=== PATIENT | female | born 1935 | race Hispanic/Latino ===

== ENCOUNTER 2017-06-09 07:36 | Inpatient (IN) | payer MEDICARE ==
[~2017-06-09] VITALS: Ht 160 cm; Wt 50.3 kg
[2017-06-09 08:06] LABS: BASOPHILS % (AUTO) 0.8 % (0.0-5.0); EOSINOPHILS % (AUTO) 1.1 % (0.0-8.0); HEMATOCRIT 40.3 % (36-48); LYMPHOCYTES % (AUTO) 15.3 % (21.0-51.0); MEAN CORPUSCULAR HEMOGLOBIN 32.3 pg (27.0-33.0); MEAN CORPUSCULAR HGB CONC 34.1 g/dL (32.0-36.0); MEAN CORPUSCULAR VOLUME 94.6 fL (79-99); NEUTROPHILS % (AUTO) 77.8 % (40.0-77.0); PLATELET COUNT (AUTO) 187 K/uL (130-400); RED BLOOD CELL COUNT(AUTO) 4.26 MIL/uL (4.00-5.50); RED CELL DISTRIBUTION WIDTH 13.7 % (11.0-15.5); WHITE BLOOD COUNT (AUTO) 7.8 K/uL (4.8-10.8)
[2017-06-09 08:19] LABS: PARTIAL THROMBOPLASTIN TIME 31.7 SEC (26.3-35.5); PROTHROMBIN TIME 10.5 SEC (9.6-11.6)
[2017-06-09 08:34] LABS: CREATININE 0.8 mg/dL (0.5-1.5)
[2017-06-09 08:49] LABS: ALBUMIN 2.7 g/dL (3.5-5.0); BILIRUBIN,TOTAL 0.6 mg/dL (0.2-1.0); CREATINE KINASE MB 0.8 ng/mL (0.5-3.6); DIGOXIN 1.19 ng/mL (0.50-2.00); TOTAL PROTEIN, SERUM 7.3 g/dL (6.0-8.3)
[2017-06-09] MEDS ORDERED: IOPAMIDOL-370 100 ML VIAL IV ONE (08:59)
[2017-06-09] MEDS ORDERED: ONDANSETRON HCL 4 MG/2 ML VIAL ONE (10:43)
[2017-06-09] MEDS ORDERED: MORPHINE SULFATE 2 MG/ML 1ML SYG ONE (10:43)
[2017-06-09] MEDS ORDERED: HYDRALAZINE HCL 20 MG/ML VIAL IV PRN (12:00)
[2017-06-09] MEDS ORDERED: IPRATROPIUM/ALBUTEROL SULFATE 3 ML SOLUTION IH ONE (13:23)
[2017-06-09 14:04] LABS: TROPONIN I 0.17 ng/mL (0.00-0.06)
[2017-06-09 17:39] VITALS: BP 149/76
[2017-06-09] MEDS: IPRATROPIUM/ALBUTEROL SULFATE 3 ML SOLUTION IH SCH ×2 (18:43→23:46)
[2017-06-09 20:00] VITALS: BP 126/62
[2017-06-09] MEDS: MORPHINE SULFATE 2 MG/ML 1ML SYG IV PRN (21:57)
[2017-06-09 22:39] LABS: CREATINE KINASE MB 1.6 ng/mL (0.5-3.6); TROPONIN I 0.18 ng/mL (0.00-0.06)
[2017-06-09] MEDS ORDERED: ONDANSETRON HCL 4 MG/2 ML VIAL IVP PRN (23:00)
[2017-06-09 23:41] VITALS: BP 122/69
[2017-06-10 04:00] VITALS: BP 127/57
[2017-06-10] MEDS ORDERED: DIGO125T87 PO (04:12)
[2017-06-10] MEDS ORDERED: ALEN70TA47 PO (04:12)
[2017-06-10] MEDS ORDERED: MEMA1CAP3 PO (04:12)
[2017-06-10] MEDS ORDERED: MIRA25TA PO (04:12)
[2017-06-10] MEDS ORDERED: APIX5TAB4 PO (04:12)
[2017-06-10] MEDS ORDERED: METH1TAB45 PO (04:12)
[2017-06-10] MEDS ORDERED: FOLI1TAB15 PO (04:12)
[2017-06-10] MEDS ORDERED: TRAZ-144 PO (04:12)
[2017-06-10] MEDS ORDERED: CALC-724 PO (04:12)
[2017-06-10] MEDS: IPRATROPIUM/ALBUTEROL SULFATE 3 ML SOLUTION IH SCH ×3 (06:19→19:07)
[2017-06-10] MEDS ORDERED: ACETAMINOPHEN 325 MG TAB PO PRN (07:45)
[2017-06-10 09:24] LABS: CREATINE KINASE MB 2.1 ng/mL (0.5-3.6); TROPONIN I 0.2 ng/mL (0.00-0.06)
[2017-06-10 09:30] VITALS: BP 143/66
[2017-06-10] MEDS: FAMOTIDINE 20MG TAB 20 MG TAB PO SCH (09:40)
[2017-06-10] MEDS ORDERED: ENOXAPARIN SODIUM 40 MG/0.4 ML SYRINGE SQ SCH (11:00)
[2017-06-10] MEDS: DIGOXIN 125 MCG TABLET PO SCH (11:38)
[2017-06-10] MEDS: MORPHINE SULFATE 2 MG/ML 1ML SYG IV PRN (12:17)
[2017-06-10 19:11] VITALS: BP 132/71
[2017-06-10 20:00] VITALS: BP 129/61
[2017-06-10] MEDS: FOLIC ACID 1 MG TABLET PO SCH (20:38)
[2017-06-10] MEDS: MEFOLATE PO SCH (20:39)
[2017-06-10] MEDS: METHYL B12 PO SCH (20:39)
[2017-06-10] MEDS: B6 PHOS PO SCH (20:39)
[2017-06-10] MEDS: TRAMADOL HCL 50 MG TABLET PO PRN (21:22)
[2017-06-10 23:49] VITALS: BP 119/58
[2017-06-11] MEDS: IPRATROPIUM/ALBUTEROL SULFATE 3 ML SOLUTION IH SCH ×4 (00:28→19:48)
[2017-06-11 04:00] VITALS: BP 138/73
[2017-06-11] MEDS: TRAMADOL HCL 50 MG TABLET PO PRN ×2 (04:16→19:36)
[2017-06-11] MEDS: MORPHINE SULFATE 2 MG/ML 1ML SYG IV PRN (06:47)
[2017-06-11 08:00] VITALS: BP 134/66
[2017-06-11] MEDS: MIRABEGRON 25 MG PO SCH (09:00)
[2017-06-11] MEDS: B6 PHOS PO SCH ×2 (09:00→20:57)
[2017-06-11] MEDS: ZINC OXIDE OINT 30GM TUBE TP SCH (09:00)
[2017-06-11] MEDS: MEMANTINE HCL PO SCH (09:00)
[2017-06-11] MEDS: DONEPEZIL HCL PO SCH (09:00)
[2017-06-11] MEDS: METHYL B12 PO SCH ×2 (09:00→20:57)
[2017-06-11] MEDS: MEFOLATE PO SCH ×2 (09:00→20:57)
[2017-06-11 11:00] VITALS: BP_SYST 111; BP_SYST 97; BP_DIAS 51; BP_DIAS 61
[2017-06-11] MEDS: LACTULOSE 20 GM/30 ML UDCUP PO PRN (11:08)
[2017-06-11] MEDS: APIXABAN 2.5 MG TABLET PO SCH ×2 (11:09→20:56)
[2017-06-11] MEDS: ACETAMINOPHEN-CODEINE 300/30MG TAB PO PRN ×2 (11:09→19:31)
[2017-06-11] MEDS: CALCIUM 600 + VITAMIN D 400 TABLET PO SCH (11:10)
[2017-06-11] MEDS: FOLIC ACID 1 MG TABLET PO SCH ×2 (11:10→20:56)
[2017-06-11] MEDS: DIGOXIN 125 MCG TABLET PO SCH (11:10)
[2017-06-11] MEDS: FAMOTIDINE 20MG TAB 20 MG TAB PO SCH (11:10)
[2017-06-11] MEDS: PREGABALIN 25 MG CAP PO SCH ×2 (14:01→20:56)
[2017-06-11 16:00] VITALS: BP 111/63
[2017-06-11] MEDS ORDERED: SODIUM CHLORIDE 0.9% 500ML 500 ML IV SCH ×2 (19:30→20:00)
[2017-06-11] MEDS ORDERED: SODIUM CHLORIDE 0.9% 500ML 500 ML IV ONE (19:30)
[2017-06-11 20:00] VITALS: BP 127/79
[2017-06-11] MEDS: METOPROLOL TARTRATE 25 MG TAB PO SCH (20:56)
[2017-06-11 23:59] VITALS: BP 114/56
[2017-06-12 04:00] VITALS: BP 112/62
[2017-06-12] MEDS: LACTULOSE 20 GM/30 ML UDCUP PO PRN (06:28)
[2017-06-12] MEDS: ACETAMINOPHEN-CODEINE 300/30MG TAB PO PRN (06:29)
[2017-06-12] MEDS: IPRATROPIUM/ALBUTEROL SULFATE 3 ML SOLUTION IH SCH ×3 (07:30→11:45)
[2017-06-12 08:00] VITALS: BP 150/71
[2017-06-12] MEDS: MEFOLATE PO SCH (09:00)
[2017-06-12] MEDS: METHYL B12 PO SCH (09:00)
[2017-06-12] MEDS: DONEPEZIL HCL PO SCH (09:00)
[2017-06-12] MEDS: B6 PHOS PO SCH (09:00)
[2017-06-12] MEDS: MEMANTINE HCL PO SCH (09:00)
[2017-06-12] MEDS: MIRABEGRON 25 MG PO SCH (09:00)
[2017-06-12] MEDS: CALCIUM 600 + VITAMIN D 400 TABLET PO SCH (09:23)
[2017-06-12] MEDS: PREGABALIN 25 MG CAP PO SCH ×2 (09:23→14:03)
[2017-06-12] MEDS: METOPROLOL TARTRATE 25 MG TAB PO SCH (09:23)
[2017-06-12] MEDS: APIXABAN 2.5 MG TABLET PO SCH (09:23)
[2017-06-12] MEDS: FAMOTIDINE 20MG TAB 20 MG TAB PO SCH (09:23)
[2017-06-12] MEDS: DIGOXIN 125 MCG TABLET PO SCH (09:24)
[2017-06-12] MEDS: FOLIC ACID 1 MG TABLET PO SCH (09:24)
[2017-06-12 11:00] VITALS: BP 154/74
[2017-06-12] MEDS ORDERED: METH1TAB45 PO (11:27)
[2017-06-12] MEDS ORDERED: ZINC56.7 TP (11:27)
[2017-06-12] MEDS ORDERED: TRAM50TA4 PO (11:27)
[2017-06-12] MEDS ORDERED: CALC-724 PO (11:27)
[2017-06-12] MEDS ORDERED: FOLI1TAB15 PO (11:27)
[2017-06-12] MEDS ORDERED: MIRA25TA PO (11:27)
[2017-06-12] MEDS ORDERED: MEMA1CAP3 PO (11:27)
[2017-06-12] MEDS ORDERED: TRAZ-144 PO (11:27)
[2017-06-12] MEDS ORDERED: PREG25 PO (11:27)
[2017-06-12] MEDS ORDERED: ALEN70TA47 PO (11:27)
[2017-06-12] MEDS ORDERED: METO25 PO (11:27)
[2017-06-12] MEDS ORDERED: APIX2.5T PO (11:27)
[2017-06-12] MEDS ORDERED: DIGO125T87 PO (11:27)
[2017-06-12] MEDS: ZINC OXIDE OINT 30GM TUBE TP SCH (14:01)
[2017-06-12 16:00] VITALS: BP 118/69
[2017-06-12] MEDS: TRAMADOL HCL 50 MG TABLET PO PRN (17:00)
[2017-06-17] MEDS ORDERED: ALENDRONATE SODIUM 35 MG TAB PO SCH (09:00)
== END 2017-06-12 17:08 | disposition home or self-care (01) | DRG 948 ==
LOC: EDH 07:36 → EDHIP 11:52 → 3DH 17:13
PROVIDERS: ADMIT Family Medicine; ATTEND Family Medicine
PROC: 4B02XSZ Measurement of Cardiac Pacemaker, External Approach (ICD-10-PCS; principal; 2017-06-11)
DX: R41.82 Altered mental status, unspecified (principal); I11.0 Hypertensive heart disease with heart failure; I48.0 Paroxysmal atrial fibrillation; I50.9 Heart failure, unspecified; E44.1 Mild protein-calorie malnutrition; F03.90 Unspecified dementia, unspecified severity, without behavioral disturbance, psychotic disturbance, mood disturbance, and anxiety; W18.30XA Fall on same level, unspecified, initial encounter; E78.5 Hyperlipidemia, unspecified; G89.29 Other chronic pain; I48.2 Chronic atrial fibrillation; Y93.89 Activity, other specified; Y92.092 Bedroom in other non-institutional residence as the place of occurrence of the external cause; Z91.81 History of falling; Z79.01 Long term (current) use of anticoagulants; Y99.8 Other external cause status; Z74.01 Bed confinement status; Z90.710 Acquired absence of both cervix and uterus; Z95.0 Presence of cardiac pacemaker; Z98.49 Cataract extraction status, unspecified eye
CPT/HCPCS: 36415; 70450; 71260; 72125; 73030; 73521; 73700; 74177; 80053; 80162; 82550; 82553; 83605; 83874; 84484; 85025; 85610; 85730; 93005; 93306; 94640; 94664; J1650; J2405; J7040; Q9967

== ENCOUNTER 2017-09-16 21:06 | Emergency (ER) | payer MEDICARE ==
[~2017-09-16 21:06] MED LIST: ALEN70TA47 PO; APIX2.5T PO; CALC-724 PO; DIGO125T87 PO; FOLI1TAB15 PO; MEMA1CAP3 PO; METH1TAB45 PO; METO25 PO; MIRA25TA PO; PREG25 PO; TRAM50TA4 PO; TRAZ-185 PO; ZINC56.7 TP
[2017-09-16 21:43] LABS: BASOPHILS % (AUTO) 0.5 % (0.0-5.0); EOSINOPHILS % (AUTO) 0.8 % (0.0-8.0); HEMATOCRIT 39.9 % (36-48); MEAN CORPUSCULAR HGB CONC 33.7 g/dL (32.0-36.0); MEAN CORPUSCULAR VOLUME 98.1 fL (79-99); MONOCYTES % (AUTO) 5.4 % (3.0-13.0); NEUTROPHILS % (AUTO) 74.3 % (40.0-77.0); PLATELET COUNT (AUTO) 144 K/uL (130-400); RED BLOOD CELL COUNT(AUTO) 4.07 MIL/uL (4.00-5.50); RED CELL DISTRIBUTION WIDTH 14.3 % (11.0-15.5); WHITE BLOOD COUNT (AUTO) 8.1 K/uL (4.8-10.8)
[2017-09-16 21:54] LABS: ALBUMIN 2.5 g/dL (3.5-5.0); BILIRUBIN,TOTAL 0.3 mg/dL (0.2-1.0); CREATININE 0.9 mg/dL (0.5-1.5); POTASSIUM 4.1 mmol/L (3.5-5.1); TOTAL PROTEIN, SERUM 6.8 g/dL (6.0-8.3)
[2017-09-16 22:00] LABS: APPEARANCE,URINE Turbid (CLEAR); BILIRUBIN,URINE Negative (NEGATIVE); COLOR,URINE Yellow (YELLOW); GLUCOSE, URINE (UA) Negative (NEGATIVE); KETONES,URINE Negative (NEGATIVE); LEUKOCYTE ESTERASE ,URINE Negative (NEGATIVE); NITRATE,URINE Negative (NEGATIVE); OCCULT BLOOD,URINE Negative (NEGATIVE); PH,URINE >=9.0 (5.0-8.0); PROTEIN,URINE Trace (NEGATIVE)
[2017-09-16 22:15] LABS: AMORPHOUS SEDIMENT,UR Moderate /LPF (None Seen); BACTERIA,URINE Few /HPF (None Seen); RBC,URINE None Seen /HPF (0-1); WBC,URINE None Seen /HPF (0-1)
== END 2017-09-16 22:48 | disposition home or self-care (01) ==
LOC: EDH 21:06
DX: R53.83 Other fatigue (principal); T44.7X5A Adverse effect of beta-adrenoreceptor antagonists, initial encounter; B34.9 Viral infection, unspecified; E78.00 Pure hypercholesterolemia, unspecified; I10 Essential (primary) hypertension; I48.91 Unspecified atrial fibrillation; Z95.0 Presence of cardiac pacemaker; Z98.890 Other specified postprocedural states; Y92.098 Other place in other non-institutional residence as the place of occurrence of the external cause
CPT/HCPCS: 36415; 71045; 80053; 81001; 85025; 93005

== ENCOUNTER 2020-03-20 05:58 | Day surgery (SDC) | payer MEDICARE ==
[~2020-03-20] VITALS: Ht 152.4 cm; Wt 54.5 kg
[~2020-03-20 05:58] MED LIST changes: -ALEN70TA47 PO; +ALEN70TA69 PO; -CALC-724 PO; -DIGO125T87 PO; -MEMA1CAP3 PO; -METH1TAB45 PO; +METO-408 PO; -METO25 PO; +OMEP20TA25 PO; -PREG25 PO; -TRAM50TA4 PO; -TRAZ-185 PO; -ZINC56.7 TP
[2020-03-20 06:30] VITALS: BP 122/57
--- NOTE | 2020-03-20 06:30 | NUR ---
PATIENT ARRIVED TO DAY PATIENT VIA STRETCHER BY AMBULANCE, ACCOMPANIED BY SON (JESENIA) AND PROVIDER (CLIFF). PATIENT CONFUSED WITH HISTORY OF DEMENTIA/ALZHEIMERS. PROCEDURE VERIFIED WITH PATIENT'S SON. PATIENT BED BOUND, WITH PRESSURE SORE TO UPPER BACK, SKIN WITH REDNESS NOTED TO UPPER BACK.
[2020-03-20 07:02] LABS: BASOPHILS % (AUTO) 0.3 % (0.0-5.0); EOSINOPHILS % (AUTO) 0.3 % (0.0-8.0); HEMATOCRIT 37.2 % (36-48); LYMPHOCYTES % (AUTO) 8.9 % (21.0-51.0); MEAN CORPUSCULAR HEMOGLOBIN 32.5 pg (27.0-33.0); MEAN CORPUSCULAR HGB CONC 33.3 g/dL (32.0-36.0); MEAN CORPUSCULAR VOLUME 97.4 fL (79-99); MONOCYTES % (AUTO) 5.2 % (3.0-13.0); NEUTROPHILS % (AUTO) 84.9 % (40.0-77.0); PLATELET COUNT (AUTO) 193 K/uL (130-400); RED BLOOD CELL COUNT(AUTO) 3.82 MIL/uL (4.00-5.50); RED CELL DISTRIBUTION WIDTH 12.6 % (11.0-15.5); WHITE BLOOD COUNT (AUTO) 11.3 K/uL (4.8-10.8)
[2020-03-20 07:08] LABS: CREATININE 0.9 mg/dL (0.5-1.5); POTASSIUM 4.2 mmol/L (3.5-5.1)
[2020-03-20] MEDS ORDERED: METH1TAB55 PO (07:18)
[2020-03-20] MEDS ORDERED: MEMA1CAP3 PO (07:18)
[2020-03-20] MEDS ORDERED: DIGO125T71 PO (07:18)
[2020-03-20] MEDS ORDERED: BUPIVACAINE/PF 0.25% 30ML VIAL IJ ONE (07:25)
[2020-03-20] MEDS ORDERED: CEFAZOLIN SODIUM 1 GM VIAL ONE (07:25)
[2020-03-20] MEDS ORDERED: LIDOCAINE HCL 1% MDV 50ML VIAL ONE (07:26)
[2020-03-20] MEDS ORDERED: MEPERIDINE-PF 25 MG/ML SYG ONE (07:26)
[2020-03-20] MEDS ORDERED: MIDAZOLAM HCL 1 MG/ML 2ML VIAL ONE (07:26)
[2020-03-20 07:27] LABS: INR 1.02 (0.85-1.15); PARTIAL THROMBOPLASTIN TIME 34.4 SEC (26.3-35.5)
--- NOTE | 2020-03-20 07:30 | NUR ---
PATIENT TRANSFERRED TO SWEEPER DRIVER VIA BED BY FRAN PREEZ. PATIENT'S PROVIDER AND SON WAITING IN PATIENT'S ROOM.
[2020-03-20] MEDS ORDERED: SODIUM CHLORIDE 0.9% 1000ML 1,000 ML IV ONE (07:40)
[2020-03-20] MEDS ORDERED: CEFAZOLIN SODIUM 1 GM VIAL IVP SCH (08:30)
[2020-03-20] MEDS ORDERED: AMOX1TAB16 PO (08:44)
--- NOTE | 2020-03-20 08:51 | NUR ---
PATIENT BROUGHT BACK TO DAY PATIENT VIA BED BY FRAN PEREZ. PATIENT'S PROVIDER IN ROOM (CLIFF). PATIENT CONFUSED, PROCEDURE WAS NOT DONE. NO SEDATION WAS GIVEN.
--- NOTE | 2020-03-20 09:30 | NUR ---
DISCHARGE INSTRUCTIONS GIVEN VIA TELEPHONE TO PATIENT'S SON (JESENIA). FOLLOW UP APPOINTMENT WITH DR CALABRESE PROVIDED. AND INSTRUCTED SON TO TAKE PATIENT TO SEE PRIMARY CARE DOCTOR JAKE THIS WELL. PATIENT'S SON VERBALIZED UNDERSTANDING, PRESCRIPTION PROVIDED.
--- NOTE | 2020-03-20 10:50 | NUR ---
PATIENT DISCHARGED FROM FACILITY VIA STRETCHER BY AMBULANCE. PATIENT'S PROVIDER ACCOMPANIED PATIENT.
== END 2020-03-20 10:20 | disposition home or self-care (01) ==
LOC: DAH 05:58
PROVIDERS: ATTEND Internal Medicine Cardiovascular Disease
DX: Z45.010 Encounter for checking and testing of cardiac pacemaker pulse generator [battery] (principal); I49.5 Sick sinus syndrome; D72.829 Elevated white blood cell count, unspecified; Z53.8 Procedure and treatment not carried out for other reasons; Z79.01 Long term (current) use of anticoagulants
CPT/HCPCS: 36415; 80048; 85025; 85610; 85730; 87040 ×2; 87077; 87186; A4215; A4216; A4221; A4222; A4223 ×3; A4606; A4663; J0690 ×2; J7030; J2175; J2250; J3490

== ENCOUNTER 2020-07-08 16:26 | Inpatient (IN) | payer MEDICARE ==
[~2020-07-08] VITALS: Ht 154.9 cm; Wt 48.4 kg
[~2020-07-08 16:26] MED LIST changes: -ALEN70TA69 PO; +ALEN70TA80 PO; +AMOX1TAB16 PO; +DIGO125T71 PO; +MEMA1CAP3 PO; +METH1TAB55 PO
[2020-07-08] MEDS ORDERED: 0.9%NACL 1000ML 1,000 ML IV ONE ×2 (17:07→19:25)
[2020-07-08] MEDS ORDERED: ACETAMINOPHEN 650 MG SUPPOSITORY RC ONE (17:07)
[2020-07-08 17:14] LABS: BASOPHILS % (AUTO) 0.5 % (0.0-5.0); HEMATOCRIT 45.8 % (36-48); MEAN CORPUSCULAR HEMOGLOBIN 30.3 pg (27.0-33.0); MEAN CORPUSCULAR VOLUME 91.8 fL (79-99); MONOCYTES % (AUTO) 3.8 % (3.0-13.0); NEUTROPHILS % (AUTO) 82.4 % (40.0-77.0); PLATELET COUNT (AUTO) 215 K/uL (130-400); RED BLOOD CELL COUNT(AUTO) 4.99 MIL/uL (4.00-5.50); RED CELL DISTRIBUTION WIDTH 13.5 % (11.0-15.5); WHITE BLOOD COUNT (AUTO) 10.3 K/uL (4.8-10.8)
[2020-07-08 17:26] LABS: INR 1.17 (0.85-1.15); PROTHROMBIN TIME 12.6 SEC (9.6-11.6)
[2020-07-08 17:28] LABS: CREATININE 1.3 mg/dL (0.5-1.5); PARTIAL THROMBOPLASTIN TIME 28.5 SEC (26.3-35.5); POTASSIUM 3.9 mmol/L (3.5-5.1)
[2020-07-08 17:50] LABS: ALBUMIN 3.3 g/dL (3.5-5.0); BILIRUBIN,TOTAL 0.8 mg/dL (0.2-1.0); TOTAL PROTEIN, SERUM 8.3 g/dL (6.0-8.3)
[2020-07-08 17:57] LABS: TROPONIN I 1.55 ng/mL (0.00-0.06)
[2020-07-08 18:08] LABS: B-TYPE NATRIURETIC PEPTIDE 2480 pg/mL (0-100)
[2020-07-08 18:24] LABS: APPEARANCE,URINE Turbid (CLEAR); BILIRUBIN,URINE Moderate (NEGATIVE); COLOR,URINE Dark Yellow (YELLOW); GLUCOSE, URINE (UA) Negative (NEGATIVE); KETONES,URINE 15 mg/dL (NEGATIVE); LEUKOCYTE ESTERASE ,URINE Trace (NEGATIVE); NITRATE,URINE Negative (NEGATIVE); OCCULT BLOOD,URINE Large (NEGATIVE); PROTEIN,URINE POS 2+ mg/dL (NEGATIVE)
[2020-07-08 18:39] LABS: DIGOXIN 1.72 ng/mL (0.50-2.00); MAGNESIUM 2.1 mg/dL (1.80-2.40)
[2020-07-08 18:46] LABS: CALCIUM OXALATE CRYSTALS,UR Few /LPF (None Seen); HYALINE CASTS, URINE 26-50 /LPF (0-1 /LPF); MUCUS,URINE Many LPF (None Seen)
[2020-07-08 18:47] LABS: AMORPHOUS SEDIMENT,UR Few /LPF (None Seen)
[2020-07-08 18:48] LABS: RBC,URINE 51-100 /HPF (0-1)
[2020-07-08 18:50] LABS: BACTERIA,URINE Moderate /HPF (None Seen)
[2020-07-08] MEDS ORDERED: ZOSYN 3.375GM+NS 50ML 50 ML IV ONE (19:02)
[2020-07-08] MEDS ORDERED: 0.9%NACL 100ML 100 ML IV ONE (19:09)
[2020-07-08] MEDS ORDERED: DILTIAZEM 125 MG/25 ML INJ IV ONE (19:10)
[2020-07-08] MEDS ORDERED: LACTULOSE 20 GM/30 ML UDCUP PO PRN (20:45)
[2020-07-08] MEDS ORDERED: DiphenhydrAMINE HCL 50 MG/ML VIAL IV PRN (20:45)
[2020-07-08] MEDS ORDERED: ONDANSETRON 4MG INJ IV PRN (20:45)
[2020-07-08] MEDS: VANCOMYCIN 1G/250ML KIT 250 ML IV SCH (20:45)
[2020-07-08] MEDS ORDERED: NITROGLYCERIN 0.4 MG SL TAB SL PRN (20:45)
[2020-07-08] MEDS: LACTATED RINGERS 1000ML 1,000 ML IV SCH (20:45)
[2020-07-08] MEDS ORDERED: ACETAMINOPHEN 325 MG TAB PO PRN ×2 (20:45)
[2020-07-08] MEDS ORDERED: VANCOMYCIN PROTOCOL PER PHARMACY IV SCH (20:45)
[2020-07-08] MEDS ORDERED: MAG/ALUM/SIMETH 30 ML UDCUP PO PRN (20:45)
[2020-07-08] MEDS ORDERED: GUAIFENESIN-DM 200/20 MG 10 ML PO PRN (20:45)
[2020-07-08] MEDS ORDERED: DIPHENHYDRAMINE HCL 25 MG CAPSULE PO PRN (20:45)
[2020-07-08] MEDS: HEPARIN 5,000 UNIT VIAL SQ SCH (21:00)
[2020-07-08] MEDS: ZOSYN 3.375GM+NS 50ML 50 ML IV SCH (21:00)
[2020-07-08] MEDS ORDERED: HEPARIN 5,000 UNIT VIAL ONE (21:16)
[2020-07-08] MEDS ORDERED: VANCOMYCIN 1G/250ML KIT 250 ML IV ONE (21:16)
[2020-07-08] MEDS ORDERED: LACTATED RINGERS 1000ML 1,000 ML IV ONE (21:17)
[2020-07-08] MEDS ORDERED: FAMOTIDINE 20MG VIAL IV ONE (21:17)
[2020-07-09] VITALS: BP 131/70
[2020-07-09] MEDS ORDERED: OMEP20CA12 PO (00:18)
[2020-07-09] MEDS ORDERED: METO37.5 PO (00:19)
[2020-07-09] MEDS ORDERED: APIX5TAB PO (00:20)
[2020-07-09] MEDS ORDERED: DOCU-116 PO (00:21)
[2020-07-09] MEDS ORDERED: CLOT15CR23 TP (00:22)
[2020-07-09 04:00] VITALS: BP 126/73
[2020-07-09 06:03] LABS: BASOPHILS % (AUTO) 0.5 % (0.0-5.0); HEMATOCRIT 39.2 % (36-48); MEAN CORPUSCULAR HEMOGLOBIN 29.6 pg (27.0-33.0); MEAN CORPUSCULAR HGB CONC 31.4 g/dL (32.0-36.0); MEAN CORPUSCULAR VOLUME 94.2 fL (79-99); NEUTROPHILS % (AUTO) 82.2 % (40.0-77.0); PLATELET COUNT (AUTO) 155 K/uL (130-400); RED BLOOD CELL COUNT(AUTO) 4.16 MIL/uL (4.00-5.50); RED CELL DISTRIBUTION WIDTH 13.6 % (11.0-15.5)
[2020-07-09 06:25] LABS: ALBUMIN 2.5 g/dL (3.5-5.0); BILIRUBIN,TOTAL 0.7 mg/dL (0.2-1.0); CREATININE 0.9 mg/dL (0.5-1.5); POTASSIUM 3.5 mmol/L (3.5-5.1); TOTAL PROTEIN, SERUM 6.5 g/dL (6.0-8.3)
[2020-07-09] MEDS ORDERED: COMPOUND IV REFRIGERATED 1 EACH IVSOLN MISC PRN (06:30)
[2020-07-09 08:21] VITALS: BP 142/58
[2020-07-09] MEDS: ZOSYN 3.375GM+NS 50ML 50 ML IV SCH ×2 (10:53→21:51)
[2020-07-09] MEDS: FAMOTIDINE 20MG VIAL IV SCH (10:58)
[2020-07-09] MEDS: ASPIRIN 325 MG TABLET PO SCH (10:58)
[2020-07-09] MEDS: HEPARIN 5,000 UNIT VIAL SQ SCH (11:12)
[2020-07-09] MEDS: LACTATED RINGERS 1000ML 1,000 ML IV SCH ×2 (11:13→21:52)
[2020-07-09 12:12] VITALS: BP 128/58
[2020-07-09 16:00] VITALS: BP 128/68
[2020-07-09] MEDS ORDERED: DILTIAZEM 125 MG/25 ML INJ 125 MG in 0.9%NACL 100ML 100 ML IV SCH (17:45)
[2020-07-09 20:00] VITALS: BP 115/60
[2020-07-09] MEDS: VANCOMYCIN 1G/250ML KIT 250 ML IV SCH (20:45)
[2020-07-09] MEDS: VANCOMYCIN 500MG+NS 100 ML IV SCH (20:51)
[2020-07-09] MEDS: APIXABAN 2.5 MG TABLET PO SCH (21:00)
[2020-07-10] VITALS (7 sets, daily range): BP systolic 103–123; BP diastolic 43–69
[2020-07-10] MEDS ORDERED: DILTIAZEM 50MG VIAL IV ONE (02:40)
[2020-07-10 05:36] LABS: BASOPHILS % (AUTO) 0.4 % (0.0-5.0); EOSINOPHILS % (AUTO) 0.3 % (0.0-8.0); HEMATOCRIT 35.6 % (36-48); LYMPHOCYTES % (AUTO) 9.4 % (21.0-51.0); MEAN CORPUSCULAR HEMOGLOBIN 29.8 pg (27.0-33.0); MEAN CORPUSCULAR HGB CONC 31.7 g/dL (32.0-36.0); MEAN CORPUSCULAR VOLUME 93.9 fL (79-99); MONOCYTES % (AUTO) 3.7 % (3.0-13.0); NEUTROPHILS % (AUTO) 85.7 % (40.0-77.0); PLATELET COUNT (AUTO) 134 K/uL (130-400); RED BLOOD CELL COUNT(AUTO) 3.79 MIL/uL (4.00-5.50); RED CELL DISTRIBUTION WIDTH 13.5 % (11.0-15.5); WHITE BLOOD COUNT (AUTO) 10.2 K/uL (4.8-10.8)
[2020-07-10 06:07] LABS: ALBUMIN 2.3 g/dL (3.5-5.0); BILIRUBIN,TOTAL 0.6 mg/dL (0.2-1.0); CREATININE 0.7 mg/dL (0.5-1.5); POTASSIUM 3.2 mmol/L (3.5-5.1); TOTAL PROTEIN, SERUM 5.8 g/dL (6.0-8.3)
[2020-07-10] MEDS: ASPIRIN 325 MG TABLET PO SCH (07:12)
[2020-07-10] MEDS: APIXABAN 2.5 MG TABLET PO SCH ×2 (07:12→20:30)
[2020-07-10] MEDS: ZOSYN 3.375GM+NS 50ML 50 ML IV SCH ×2 (07:12→20:29)
[2020-07-10] MEDS: FAMOTIDINE 20MG VIAL IV SCH (07:12)
[2020-07-10] MEDS: METOPROLOL TARTRATE 25 MG TAB PO SCH ×2 (08:29→20:30)
[2020-07-10] MEDS ORDERED: VANCOMYCIN 750MG + NS 250 ML IV SCH ×2 (20:00)
[2020-07-10] MEDS: VANCOMYCIN 500MG+NS 100 ML IV SCH (20:29)
[2020-07-10] MEDS: BALSAM PERU/CASTOR OIL 60 GM TUBE TP SCH (20:30)
[2020-07-10] MEDS: CLOTRIMAZOLE 30 GM CREAM.GM. TP SCH (20:30)
[2020-07-10] MEDS: FOLIC ACID 1 MG TABLET PO SCH (20:30)
[2020-07-11 03:22] VITALS: BP 126/50
[2020-07-11 05:40] LABS: BASOPHILS % (AUTO) 0.2 % (0.0-5.0); EOSINOPHILS % (AUTO) 0.6 % (0.0-8.0); HEMATOCRIT 35.2 % (36-48); LYMPHOCYTES % (AUTO) 12.7 % (21.0-51.0); MEAN CORPUSCULAR HEMOGLOBIN 30.2 pg (27.0-33.0); MEAN CORPUSCULAR HGB CONC 32.7 g/dL (32.0-36.0); MEAN CORPUSCULAR VOLUME 92.4 fL (79-99); MONOCYTES % (AUTO) 5.3 % (3.0-13.0); NEUTROPHILS % (AUTO) 80.9 % (40.0-77.0); PLATELET COUNT (AUTO) 139 K/uL (130-400); RED BLOOD CELL COUNT(AUTO) 3.81 MIL/uL (4.00-5.50); RED CELL DISTRIBUTION WIDTH 13.6 % (11.0-15.5); WHITE BLOOD COUNT (AUTO) 9.5 K/uL (4.8-10.8)
[2020-07-11 06:06] LABS: ALBUMIN 2.4 g/dL (3.5-5.0); BILIRUBIN,TOTAL 0.6 mg/dL (0.2-1.0); CREATININE 0.8 mg/dL (0.5-1.5)
[2020-07-11 06:10] LABS: POTASSIUM 2.6 mmol/L (3.5-5.1)
[2020-07-11] MEDS: POTASSIUM CHLORIDE 20MEQ/100ML 100 ML IV PRN ×4 (06:25→22:10)
[2020-07-11] MEDS: LIDOCAINE HCL-MPF 1% 2ML VIAL IV PRN ×4 (06:27→22:10)
[2020-07-11] MEDS ORDERED: DEXTROSE 5%-WATER 1,000 ML IV SCH (07:30)
[2020-07-11 08:00] VITALS: BP 140/56
[2020-07-11] MEDS: MEMANTINE HCL PO SCH (09:00)
[2020-07-11] MEDS: **HM**(Mirabegron (Myrbetriq) 25 MG PO SCH (09:00)
[2020-07-11] MEDS: DONEPEZIL HCL PO SCH (09:00)
[2020-07-11] MEDS: METOPROLOL TARTRATE 25 MG TAB PO SCH ×2 (09:49→22:09)
[2020-07-11] MEDS: FAMOTIDINE 20MG VIAL IV SCH (09:49)
[2020-07-11] MEDS: APIXABAN 2.5 MG TABLET PO SCH ×2 (09:49→22:09)
[2020-07-11] MEDS: FOLIC ACID 1 MG TABLET PO SCH ×2 (09:49→22:10)
[2020-07-11] MEDS: ZOSYN 3.375GM+NS 50ML 50 ML IV SCH ×2 (09:50→22:09)
[2020-07-11] MEDS: CLOTRIMAZOLE 30 GM CREAM.GM. TP SCH ×2 (09:50→22:10)
[2020-07-11] MEDS: BALSAM PERU/CASTOR OIL 60 GM TUBE TP SCH ×3 (09:50→22:11)
[2020-07-11 11:45] VITALS: BP 127/60
[2020-07-11 16:00] VITALS: BP 130/62
[2020-07-11 20:00] VITALS: BP 123/72
[2020-07-11] MEDS: VANCOMYCIN 500MG+NS 100 ML IV SCH (22:09)
[2020-07-12] VITALS (7 sets, daily range): BP systolic 136–180; BP diastolic 62–76
[2020-07-12 04:21] LABS: BASOPHILS % (AUTO) 0.2 % (0.0-5.0); EOSINOPHILS % (AUTO) 0.3 % (0.0-8.0); HEMATOCRIT 36.6 % (36-48); LYMPHOCYTES % (AUTO) 11.8 % (21.0-51.0); MEAN CORPUSCULAR HEMOGLOBIN 28.8 pg (27.0-33.0); MEAN CORPUSCULAR HGB CONC 31.4 g/dL (32.0-36.0); MEAN CORPUSCULAR VOLUME 91.7 fL (79-99); MONOCYTES % (AUTO) 4.3 % (3.0-13.0); PLATELET COUNT (AUTO) 137 K/uL (130-400); RED BLOOD CELL COUNT(AUTO) 3.99 MIL/uL (4.00-5.50); RED CELL DISTRIBUTION WIDTH 13.9 % (11.0-15.5); WHITE BLOOD COUNT (AUTO) 11.3 K/uL (4.8-10.8)
[2020-07-12 04:47] LABS: CREATININE 0.6 mg/dL (0.5-1.5); POTASSIUM 3.4 mmol/L (3.5-5.1)
[2020-07-12] MEDS: POTASSIUM CHLORIDE 20MEQ/100ML 100 ML IV PRN (07:08)
[2020-07-12] MEDS: LIDOCAINE HCL-MPF 1% 2ML VIAL IV PRN (07:09)
[2020-07-12] MEDS: DONEPEZIL HCL PO SCH (09:00)
[2020-07-12] MEDS: **HM**(Mirabegron (Myrbetriq) 25 MG PO SCH (09:00)
[2020-07-12] MEDS: MEMANTINE HCL PO SCH (09:00)
[2020-07-12] MEDS: METOPROLOL TARTRATE 25 MG TAB PO SCH ×2 (10:12→21:19)
[2020-07-12] MEDS: FAMOTIDINE 20MG VIAL IV SCH (10:12)
[2020-07-12] MEDS: APIXABAN 2.5 MG TABLET PO SCH ×2 (10:12→21:19)
[2020-07-12] MEDS: FOLIC ACID 1 MG TABLET PO SCH ×2 (10:12→21:19)
[2020-07-12] MEDS: ZOSYN 3.375GM+NS 50ML 50 ML IV SCH (10:13)
[2020-07-12] MEDS: CLOTRIMAZOLE 30 GM CREAM.GM. TP SCH ×2 (10:15→21:18)
[2020-07-12] MEDS: BALSAM PERU/CASTOR OIL 60 GM TUBE TP SCH ×3 (10:16→21:18)
[2020-07-12] MEDS ORDERED: POTASSIUM CHLORIDE 20MEQ/100ML 100 ML IV PRN (11:00)
[2020-07-12] MEDS ORDERED: LACTATED RINGERS 1000ML 1,000 ML IV SCH (11:15)
[2020-07-12] MEDS: LACTATED RINGERS 1000ML 1,000 ML IV SCH (14:52)
[2020-07-12] MEDS ORDERED: GLYCERIN ADULT SUPP.RECT RC SCH (19:00)
[2020-07-13 01:09] VITALS: BP 147/54
[2020-07-13] MEDS: LACTATED RINGERS 1000ML 1,000 ML IV SCH (01:28)
[2020-07-13 05:20] VITALS: BP 100/55
[2020-07-13 05:54] LABS: BASOPHILS % (AUTO) 0.2 % (0.0-5.0); EOSINOPHILS % (AUTO) 0.5 % (0.0-8.0); HEMATOCRIT 34.3 % (36-48); LYMPHOCYTES % (AUTO) 12.5 % (21.0-51.0); MEAN CORPUSCULAR HEMOGLOBIN 30.3 pg (27.0-33.0); MEAN CORPUSCULAR HGB CONC 32.9 g/dL (32.0-36.0); MONOCYTES % (AUTO) 5.2 % (3.0-13.0); NEUTROPHILS % (AUTO) 81.2 % (40.0-77.0); PLATELET COUNT (AUTO) 138 K/uL (130-400); RED BLOOD CELL COUNT(AUTO) 3.73 MIL/uL (4.00-5.50); RED CELL DISTRIBUTION WIDTH 14.2 % (11.0-15.5); WHITE BLOOD COUNT (AUTO) 11.5 K/uL (4.8-10.8)
[2020-07-13 06:03] LABS: CREATININE 0.6 mg/dL (0.5-1.5); POTASSIUM 3.8 mmol/L (3.5-5.1)
[2020-07-13] MEDS ORDERED: DEXTROSE 5%-WATER 1,000 ML IV SCH (06:45)
[2020-07-13 08:16] VITALS: BP 140/61
[2020-07-13] MEDS: MEMANTINE HCL PO SCH (09:00)
[2020-07-13] MEDS: DONEPEZIL HCL PO SCH (09:00)
[2020-07-13] MEDS: **HM**(Mirabegron (Myrbetriq) 25 MG PO SCH (09:00)
[2020-07-13] MEDS: FOLIC ACID 1 MG TABLET PO SCH (09:58)
[2020-07-13] MEDS: APIXABAN 2.5 MG TABLET PO SCH (09:58)
[2020-07-13] MEDS: METOPROLOL TARTRATE 25 MG TAB PO SCH (09:58)
[2020-07-13] MEDS: FAMOTIDINE 20MG VIAL IV SCH (09:59)
[2020-07-13] MEDS: CLOTRIMAZOLE 30 GM CREAM.GM. TP SCH (10:28)
[2020-07-13] MEDS: BALSAM PERU/CASTOR OIL 60 GM TUBE TP SCH ×2 (10:28→14:00)
[2020-07-13 11:03] LABS: BASOPHILS % (AUTO) 0.2 % (0.0-5.0); EOSINOPHILS % (AUTO) 0.4 % (0.0-8.0); HEMATOCRIT 34.7 % (36-48); LYMPHOCYTES % (AUTO) 8.8 % (21.0-51.0); MEAN CORPUSCULAR HEMOGLOBIN 30.3 pg (27.0-33.0); MEAN CORPUSCULAR HGB CONC 32.9 g/dL (32.0-36.0); MEAN CORPUSCULAR VOLUME 92.3 fL (79-99); MONOCYTES % (AUTO) 4.7 % (3.0-13.0); NEUTROPHILS % (AUTO) 85.5 % (40.0-77.0); PLATELET COUNT (AUTO) 140 K/uL (130-400); RED BLOOD CELL COUNT(AUTO) 3.76 MIL/uL (4.00-5.50); RED CELL DISTRIBUTION WIDTH 14.3 % (11.0-15.5); WHITE BLOOD COUNT (AUTO) 11.6 K/uL (4.8-10.8)
[2020-07-13] MEDS ORDERED: APIX2.5T PO (11:03)
[2020-07-13] MEDS ORDERED: METO25 PO (11:03)
[2020-07-13 11:14] LABS: CREATININE 0.7 mg/dL (0.5-1.5); POTASSIUM 3.5 mmol/L (3.5-5.1)
[2020-07-13 11:54] VITALS: BP 115/52
[2020-07-13 17:25] VITALS: BP 118/68
[2020-07-13 19:00] VITALS: BP 108/34
[2020-07-17] MEDS ORDERED: ALENDRONATE SODIUM 35 MG TAB PO SCH (09:00)
== END 2020-07-13 20:30 | disposition home or self-care (01) | DRG 308 ==
LOC: EDH 16:26 → EDHIP 20:35 → 4DH 07-09 01:07
PROVIDERS: ADMIT Family Medicine; ATTEND Family Medicine
PROC: 4B02XSZ Measurement of Cardiac Pacemaker, External Approach (ICD-10-PCS; principal; 2020-06-12)
DX: I48.0 Paroxysmal atrial fibrillation (principal); I50.21 Acute systolic (congestive) heart failure; R53.2 Functional quadriplegia; N39.0 Urinary tract infection, site not specified; D68.69 Other thrombophilia; E46 Unspecified protein-calorie malnutrition; G93.40 Encephalopathy, unspecified; E87.0 Hyperosmolality and hypernatremia; I11.0 Hypertensive heart disease with heart failure; E86.0 Dehydration; L98.429 Non-pressure chronic ulcer of back with unspecified severity; D64.9 Anemia, unspecified; Z68.20 Body mass index [BMI] 20.0-20.9, adult; E78.00 Pure hypercholesterolemia, unspecified; E78.5 Hyperlipidemia, unspecified; I25.10 Atherosclerotic heart disease of native coronary artery without angina pectoris; R13.10 Dysphagia, unspecified; R31.0 Gross hematuria; Z74.01 Bed confinement status; Z79.01 Long term (current) use of anticoagulants; Z79.82 Long term (current) use of aspirin; Z79.899 Other long term (current) drug therapy; Z82.0 Family history of epilepsy and other diseases of the nervous system; Z82.49 Family history of ischemic heart disease and other diseases of the circulatory system; Z86.79 Personal history of other diseases of the circulatory system; Z90.710 Acquired absence of both cervix and uterus; Z95.0 Presence of cardiac pacemaker; Z96.651 Presence of right artificial knee joint; Z79.2 Long term (current) use of antibiotics; Z88.1 Allergy status to other antibiotic agents; Z88.7 Allergy status to serum and vaccine; Z88.8 Allergy status to other drugs, medicaments and biological substances; F03.90 Unspecified dementia, unspecified severity, without behavioral disturbance, psychotic disturbance, mood disturbance, and anxiety; L89.322 Pressure ulcer of left buttock, stage 2; I48.91 Unspecified atrial fibrillation; Z20.822 Contact with and (suspected) exposure to COVID-19
CPT/HCPCS: 36415; 70450; 71045; 74176; 80048; 80053; 80162; 81001; 82550; 83605; 83735; 83874; 83880; 84132; 84145; 84484; 85025; 85610; 85730; 86140; 86900; 86901; 87040; 87088; 87426; 87804; 92526; 92610; 93005; 93306; 99291; G0378; J1644; J2543; J3370; J3480; J3490; J7030; J7070; J7120; U0003